=== PATIENT | male | born 1955 | race Caucasian/White ===

== ENCOUNTER → 2017-08-19 08:43 | Outpatient (POV) | payer SELFPAY | PROVIDERS: Visit Provider Dermatology | DX: Z00.00 Encounter for general adult medical examination without abnormal findings (principal) ==

== ENCOUNTER → 2019-10-30 14:51 | Outpatient (CLI) | payer BC, SELFPAY ==
[2019-10-30 15:00] LABS: Potassium 4.7 mmoL/L (3.5-5.1); Sodium 139 mmol/L (136-145)
[2019-10-30 15:02] LABS: Blood Urea Nitrogen 19 mg/dl (9-20); Estimated Glomerular Filt Rate 98 ml/min (>60); GFR (African American) 119 ML/MIN (>60)
[2019-10-30 15:03] LABS: Albumin Level 4.6 g/dl (3.5-5.0); Albumin/Globulin Ratio 1.7 (1.1-1.8); Alkaline Phosphatase 79 U/L (38-126); Bilirubin,Total 0.9 mg/dl (0.2-1.3); Carbon Dioxide 28 mmol/L (22.0-30.0); Chol/HDL Ratio 6.6 (1-3.5); Cholesterol 224 mg/dl (140-200); Globulin 2.7 g/dL (1.3-3.2); HDL Cholesterol 34 mg/dl (40-60); Total Protein,Serum 7.3 g/dl (6.3-8.2); Triglycerides 315 mg/dl (30-150); VLDL Cholesterol 63 mg/dL (0-40)
[2019-10-30 15:05] LABS: Anion Gap 13.7 mEq/L (5-15); Chloride 102 mmol/L (98-107)
[2019-10-30 15:07] LABS: Alanine Aminotransferase 23 U/L (12-78); Aspartate Amino Transferase 30 U/L (17-59)
[2019-10-30 15:08] LABS: Calcium 9.7 mg/dl (8.4-10.2); Glucose 113 mg/dl (74-100)
[2019-10-30 15:17] LABS: Direct LDL Cholesterol 125.44 mg/dL (100-129)
[2019-11-01 15:27] LABS: PSA, Free 0.23 ng/mL; Prostate Specific Ag 1.3 ng/mL (0.0-4.0)
== END ==
PROVIDERS: Visit Provider Family Medicine
DX: E78.5 Hyperlipidemia, unspecified (principal); J45.30 Mild persistent asthma, uncomplicated; B77 Ascariasis; F41.9 Anxiety disorder, unspecified; G62.9 Polyneuropathy, unspecified
CPT/HCPCS: 80053; 80061; 84153; 84154

== ENCOUNTER → 2021-03-14 08:22 | Outpatient (CLI) | payer BC, SELFPAY ==
[2021-03-14] VITALS (8 sets, daily range): BP systolic 142–163; BP diastolic 66–81; PULSE 82–87; RESP 18; TEMP 37.1; O2SAT 90–94
--- NOTE | 2021-03-14 10:09 | PC.NURSE ---
1003 pt discharge stable from Regen-[facility] infusion.
== END | disposition home or self-care (01) ==
DX: U07.1 COVID-19 (principal); Z23 Encounter for immunization
CPT/HCPCS: 96365

== ENCOUNTER → 2021-04-03 17:48 | Outpatient (CLI) | payer BC, SELFPAY ==
[2021-04-03 19:28] LABS: Anion Gap 10.8 mEq/L (5-15); Blood Urea Nitrogen 16 mg/dl (9-20); Calcium 9.8 mg/dl (8.4-10.2); Carbon Dioxide 31 mmol/L (22.0-30.0); Chloride 100 mmol/L (98-107); Estimated Glomerular Filt Rate 97 ml/min (>60); GFR (African American) 118 ML/MIN (>60); Glucose 95 mg/dl (74-100); Potassium 4.8 mmoL/L (3.5-5.1); Sodium 137 mmol/L (136-145)
== END ==
PROVIDERS: Visit Provider Family Medicine
DX: E87.8 Other disorders of electrolyte and fluid balance, not elsewhere classified (principal)
CPT/HCPCS: 80048

== ENCOUNTER 2021-04-16 17:34 | Emergency (ER) | payer BC, SELFPAY ==
[2021-04-16 17:35] VITALS: BP 158/84; PULSE 89; RESP 16; TEMP 36.9; O2SAT 95; BMI 29.7
--- NOTE | 2021-04-16 18:12 | HMH.EDGENADL ---
ED Disposition Clinical Impression: Acute hemorrhoid Disposition: Home, Self-Care Condition on Discharge: Good Referrals: Clemente Bear MD [Primary Care Provider] - Deven Harden MD [Staff Physician] - - Critical Care Critical Care Time: No Attestation: On 04/16/21, the high probability of a clinically significant, sudden or life threatening deterioration of the following system(s) required my full and direct attention, intervention and personal management. The time I documented below is in addition to time spent performing reported procedures but includes the following listed in this critical care notation. Medical Decision Making - Medical Records Medical records reviewed: Yes: I reviewed the patient's medical records. - Ish Inquiry Pt receiving controlled substance: No Medical Decision Narrative: Patient presents with normal vital signs. Physical exam demonstrates known hemorrhoids, no evidence of thrombosis. Patient is already compliant with mainstays of therapy. Obtained sitz bath from OB. Will refer to general surgery for further intervention. General Adult HPI - General Stated complaint: hemorrhoids pain Time Seen by Provider: 04/16/21 18:12 - History of Present Illness HPI narrative: Patient is a 66-year-old male presenting for evaluation of hemorrhoid pain. Patient has been symptomatic for approximately a month. Patient has been trying steroid enemas, intermittent laxatives, cold compresses without relief. Patient was seen by primary care today and referred to the ER. Patient has had challenges maintaining soft stool consistency, either with diarrhea or constipation. Patient has no shower at home to attempt sitz bath's. No recent bleeding per patient. - Related Data Home Medications Medication Instructions Recorded Confirmed latanoprost 0.005 % eye drops 1 drp OPHTHALMIC DAILY 10/30/19 04/03/21 Fluticasone/Salmeterol [Advair 1 inh INHALATION BID 03/14/21 04/03/21 250/50mcg Diskus] Gabapentin [Gabapentin 400mg Cap] 400 mg PO TID 03/14/21 04/03/21 lisinopriL [Lisinopril] 40 mg PO DAILY 03/14/21 04/03/21 Previous Rx's Medication Instructions Recorded albuterol sulfate 2.5 mg INHALATION Q6H PRN #180 ml 02/14/21 albuterol sulfate 90 mcg/actuation 2 puff INHALATION QID PRN #18 g 02/14/21 aerosol inhaler clonazepam 1 mg tablet 1 mg PO BID PRN #60 tab 02/14/21 hydrocortisone acetate 25 mg 25 mg [place] BID #24 each 04/03/21 rectal suppository sulfamethoxazole 800 1 tab PO BID #20 tab 04/07/21 mg-trimethoprim 160 mg tablet Allergies Allergy/AdvReac Type Severity Reaction Status Date / Time clindamycin Allergy Severe Swelling Verified 04/03/21 14:16 of Lip/Tongue/Throat acetaminophen Allergy Mild Verified 04/03/21 14:16 [From Tylenol-Codeine #3] amoxicillin [From Augmentin] Allergy Mild Verified 04/03/21 14:16 azithromycin Allergy Mild Verified 04/03/21 14:16 clavulanic acid Allergy Mild Verified 04/03/21 14:16 [From Augmentin] moxifloxacin [From Avelox] Allergy Mild Verified 04/03/21 14:16 Steridos AdvReac Severe Hypertensio Uncoded 04/03/21 14:16 n [facility] History - Hepatitis A Screen Drug use history?: No Attestation statement:: This patient has been screened for Hepatitis A risk factors. I have reviewed the patient's past medical history: Yes Medical History: Reports:: Anxiety, Asthma, Depression, Hypertension, Kidney Stones Other Medical History: Reports: Arthritis, Cataracts, Glaucoma Laterality Cases: Bilateral: Carpal Tunnel Release Other Surgeries: Yes: Colonoscopy, Hernia Repair, Other Amputation: No Fractures: No Comment: cataract surgery - Social History Smoking Status: Former smoker Alcohol Intake: never Substance Use Type: denies use Occupational Status: employed, retired Housing: house Household Members: spouse - Psychiatric History Pschychiatric History:: Reports:: Anxiety, Depression Family Hx:: Diabete
--- NOTE | 2021-04-16 18:23 | PC.NURSE ---
sitz bath kit given to pt and instructions for home use
[2021-04-16 18:41] VITALS: BP 158/84; PULSE 89; RESP 16; TEMP 36.9; O2SAT 95
== END 2021-04-16 18:41 | disposition home or self-care (01) ==
PROVIDERS: Emergency Provider Internal Medicine Critical Care Medicine; PCP Family Medicine
DX: K64.9 Unspecified hemorrhoids (principal); I10 Essential (primary) hypertension; F41.8 Other specified anxiety disorders; Z87.891 Personal history of nicotine dependence; Z88.1 Allergy status to other antibiotic agents
CPT/HCPCS: 99281

== ENCOUNTER → 2021-12-23 08:17 | Outpatient (CLI) | payer BC, SELFPAY ==
[2021-12-23 20:44] LABS: Adenovirus,PCR Not Detected (NotDetected); Bordetella Pertussis Not Detected (NotDetected); Chlamydophila Pneumoniae, PCR Not Detected (NotDetected); Coronavirus 19, PCR Not Detected (NotDetected); Coronavirus 229E Not Detected (NotDetected); Coronavirus NL63 Not Detected (NotDetected); Coronavirus OC43 Not Detected (NotDetected); Coronovirus HKU1,PCR Not Detected (NotDetected); Human Metapneumovirus Not Detected (NotDetected); Influenza A, PCR Not Detected (NotDetected); Influenza AH1, 2009 Not Detected (NotDetected); Influenza AH1, PCR Not Detected (NotDetected); Influenza AH3,PCR Not Detected (NotDetected); Influenza B, PCR Not Detected (NotDetected); Mycoplasma Pneumoniae, PCR Not Detected (NotDetected); Parainfluenza 1, PCR Not Detected (NotDetected); Parainfluenza 2, PCR Not Detected (NotDetected); Parainfluenza 3, PCR Not Detected (NotDetected); Parainfluenza 4, PCR Not Detected (NotDetected); Respiratory Syncytial Virus Not Detected (NotDetected); Rhinovirus/Enterovirus Not Detected (NotDetected)
== END ==
PROVIDERS: PCP Family Medicine; Visit Provider Family Medicine
DX: Z20.822 Contact with and (suspected) exposure to COVID-19 (principal); R09.89 Other specified symptoms and signs involving the circulatory and respiratory systems
CPT/HCPCS: 87581; 87632; 87798; C9803; U0003; U0005

== ENCOUNTER → 2022-10-08 23:12 | Outpatient (CLI) | payer MEDICARE, MEDICAID, SELFPAY ==
[2022-10-08 18:25] LABS: Adenovirus,PCR Not Detected (NotDetected); Bordetella Pertussis Not Detected (NotDetected); Chlamydophila Pneumoniae, PCR Not Detected (NotDetected); Coronavirus 19, PCR Not Detected (NotDetected); Coronavirus 229E Not Detected (NotDetected); Coronavirus NL63 Not Detected (NotDetected); Coronavirus OC43 Not Detected (NotDetected); Coronovirus HKU1,PCR Not Detected (NotDetected); Human Metapneumovirus Not Detected (NotDetected); Influenza A, PCR Not Detected (NotDetected); Influenza AH1, 2009 Not Detected (NotDetected); Influenza AH1, PCR Not Detected (NotDetected); Influenza AH3,PCR Not Detected (NotDetected); Influenza B, PCR Not Detected (NotDetected); Mycoplasma Pneumoniae, PCR Not Detected (NotDetected); Parainfluenza 1, PCR Not Detected (NotDetected); Parainfluenza 2, PCR Not Detected (NotDetected); Parainfluenza 3, PCR Not Detected (NotDetected); Parainfluenza 4, PCR Not Detected (NotDetected); Respiratory Syncytial Virus Not Detected (NotDetected); Rhinovirus/Enterovirus Not Detected (NotDetected)
[2022-10-08 18:51] LABS: Basophils % 0.5 % (0.1-2.0); Eosinophils # 0.1 K/mm3 (0.0-0.4); Eosinophils % 2.2 % (0.1-12.0); Hematocrit 44.6 % (42.0-52.0); Hemoglobin 14.5 g/dL (14.1-18.0); Lymphocytes # 2.1 K/mm3 (0.7-4.5); Lymphocytes % 38.6 % (10-50); Mean Corpuscular HGB Conc 32.6 g/dL (31.8-35.4); Mean Corpuscular Hemoglobin 30.9 pg (27.0-31.2); Mean Corpuscular Volume 94.9 fl (80-94); Mean Platelet Volume 9.9 fl (7.4-10.4); Monocytes # 0.4 K/mm3 (0.1-1.0); Neutrophils # 2.8 K/mm3 (1.8-7.8); Neutrophils % 51.7 % (37.0-80.0); Platelet Count 252 K/mm3 (142-424); Red Cell Distribution Width 13.5 % (11.5-17.5); White Blood Count 5.5 K/mm3 (4.8-10.8)
[2022-10-08 18:55] LABS: Alanine Aminotransferase 60 U/L (12-78); Albumin Level 4.3 g/dl (3.5-5.0); Albumin/Globulin Ratio 1.7 (1.1-1.8); Alkaline Phosphatase 79 U/L (38-126); Anion Gap 16.3 mEq/L (5-15); Aspartate Amino Transferase 61 U/L (17-59); Bilirubin,Total 0.5 mg/dl (0.2-1.3); Blood Urea Nitrogen 17 mg/dl (9-20); Calcium 9.4 mg/dl (8.4-10.2); Carbon Dioxide 26 mmol/L (22.0-30.0); Chloride 101 mmol/L (98-107); Chol/HDL Ratio 8.9 (1-3.5); Cholesterol 257 mg/dl (140-200); Estimated Glomerular Filt Rate 97 ml/min (>60); GFR (African American) 117 ML/MIN (>60); Globulin 2.6 g/dL (1.3-3.2); Glucose 184 mg/dl (74-100); HDL Cholesterol 29 mg/dl (40-60); Potassium 4.3 mmoL/L (3.5-5.1); Sodium 139 mmol/L (136-145); Total Protein,Serum 6.9 g/dl (6.3-8.2); Triglycerides 470 mg/dl (30-150)
[2022-10-08 19:07] LABS: Direct LDL Cholesterol 122.85 mg/dL (100-129)
[2022-10-08 19:21] LABS: Hemoglobin A1C 5.9 % (4.0-6.0)
[2022-10-08 19:27] LABS: Prostate Specific Ag Screen 1.1 ng/ml (0.0-4.0)
== END ==
PROVIDERS: PCP Family Medicine; Visit Provider Family Medicine
DX: R07.9 Chest pain, unspecified (principal); G62.9 Polyneuropathy, unspecified; I10 Essential (primary) hypertension; J02.9 Acute pharyngitis, unspecified; Z12.5 Encounter for screening for malignant neoplasm of prostate; Z79.899 Other long term (current) drug therapy; R06.09 Other forms of dyspnea
CPT/HCPCS: 80053; 80061; 83036; 84443; 85025; 87581; 87632; 87635; 87798; G0103; C9803; U0003; U0005

== ENCOUNTER → 2022-11-11 08:11 | Outpatient (CLI) | payer MEDICARE, SELFPAY ==
[2022-11-11 09:07] LABS: Anion Gap 11.5 mEq/L (5-15); Blood Urea Nitrogen 25 mg/dl (9-20); Calcium 10.2 mg/dl (8.4-10.2); Carbon Dioxide 30 mmol/L (22.0-30.0); Chloride 102 mmol/L (98-107); Estimated Glomerular Filt Rate 75 ml/min (>60); GFR (African American) 91 ML/MIN (>60); Glucose 129 mg/dl (74-100); Potassium 4.5 mmoL/L (3.5-5.1); Sodium 139 mmol/L (136-145)
== END ==
PROVIDERS: PCP Family Medicine; Visit Provider Physician Assistant
DX: I10 Essential (primary) hypertension (principal)
CPT/HCPCS: 36415; 80048

== ENCOUNTER → 2022-11-18 07:53 | Outpatient (CLI) | payer MEDICARE, SELFPAY ==
--- NOTE | 2022-11-18 | CA_ITS ---
APPROVED REPORT Exam: Exercise Treadmill Technologist: Ankita Thurston, Ht: 5 ft 8 in Wt: 222 lbs BSA: 2.14 m2 HR: 67 bpm BP: 163/86 mmHg Rhythm: NSR, ST-T ABNS IN LEADS III, AVF Medical History Medical History: Hyperlipidemia, Smoking Medications: Gabapentin,,,,, ClonAZEPAM,,,,, Albuterol,,,,, Celecoxib,,,,, CetIRIZINE,,,,, Vit D2,,,,, ADVAIR Diskus,,,,, Valsartan-HYDROCLOROTHIAZIDE,,,,, Cardiac Risk Factors: Hyperlipidemia, Smoking Stress Test Details Test: Brien HR Resting HR: 73 bpm Max Heart Rate (APMHR): 155 bpm Max HR Achieved: 157 bpm Target HR (85% APMHR): 132 bpm % of APMHR: 101 Recovery HR: 95 bpm HR response to stress: Normal HR response to stress BP Resting BP: 163.0/86 mmHg Max BP: 240/80 mmHg Recovery BP: 170.0/74.0 mmHg BP response to stress: Abnormal hypertensive response to stress. ECG Resting ECG: NSR, ST-T ABNS IN LEADS III, AVF Stress ECG: > [address] DEPRESSION Arrhythmia: PVCs, VENTRICULAR COUPLET Recovery ECG: RETURN TO BASELINE WITHIN 3 MINUTES OF RECOVERY Recovery Arrhythmia: PVCs Clinical Exercise duration: 09:30 min Highest Stage Achieved: Exercise capacity: 10.1 METs Overall Exercise Capacity for Age: Average Stress ECG Conclusion PT EXERCISED 9:30 ON BRIEN PROTOCOL. HE ACHIEVED A TOTAL OF 10.1 METS. HE HAS AN AVERAGE EXERCISE CAPACITY COMPARED TO AGE AND SEX MATCHED PEERS. HE HAS A NORMAL HR, BUT EXAGGERATED BP, RESPONSE TO EXERCISE. MAX HR: 157 % OF PM: 101% MAX BP: 240/80 METS: 10.1 TEST STOPPED DUE TO: SOA, FATIGUE NO CP OCCASTIONAL ISOLATED PVC AND SEVERAL VENTRICULAR COUPLETS > [address] DEPRESSION WAS PRESENT AT PEAK STRESS. MILD EXAGGERATION OF BASELINE ABNS IN LEADS III AND AVF CONCLUSION AVERAGE EXERCISE CAPACITY EXAGGERATED BP RESPONSE TO EXERCISE STRESS ECG IS POSITIVE FOR ISCHEMIA MYOVIEW IMAGES REPORTED SEPARATELY Test Summary REST . . . . . . . Standing REST . . . . . . . Sitting REST 06:08 0.0 0.0 73 . 163/ 86 . . Stage 1 01:00 10.0 1.7 94 . . . . Stage 1 02:00 10.0 1.7 102 . . . . Stage 1 03:00 10.0 1.7 103 . 194/ 82 . . Stage 2 01:00 12.0 2.5 114 . . . . Stage 2 02:00 12.0 2.5 116 . . . . Stage 2 03:00 12.0 2.5 124 . 220/ 78 . . Stage 3 01:00 14.0 3.4 133 . . . . Stage 3 02:00 14.0 3.4 137 . . . . Stage 3 03:00 14.0 3.4 143 . 240/ 80 . . Stage 4 00:30 16.0 4.2 153 . . . Stop exercise at 09:30 RECOVERY 01:00 0.0 0.0 136 . . . . RECOVERY 02:00 0.0 0.0 115 . . . . RECOVERY 03:00 0.0 0.0 104 . 184/ 75 . . RECOVERY 04:00 0.0 0.0 97 . 196/ 76 . . RECOVERY 05:00 0.0 0.0 93 . 170/ 74 . . RECOVERY 06:00 0.0 0.0 93 . 152/ 74 . . RECOVERY 06:23 0.0 0.0 94 . 152/ 74 . . Electronically signed by : Prabha Beckwith, 11/21/2022 14:42:33
--- NOTE | 2022-11-18 07:53 | NM_ITS ---
APPROVED REPORT Exam: Nuclear Stress Test Indication: chest pain Patient Location: Outpatient Stress Tech: Ankita Thurston OR Tech:Miriam Florentino BRANDON RT(R)(N) Ht: 5 ft 8 in Wt: 215 lbs HR: 73 bpm BP: 163/86 mmHg BSA: 2.11 m2 Rhythm: NSR TID: 0.95 BMI: 32.6 History: chest pain Procedure: Patient exercised on Micah protocol 9:30 minutes and sec, resting heart rate 73 bpm, resting blood pressure 163/86 mmHg, with exercise maximum heart rate achived was 157 bpm which is 101 % of the maximum predicted heart rate and blood pressure was 240/80 mmHg. Patient denied any complaint of chest pain. Patient has average exercise capacity, achieved 10.1 METs of workload on treadmill, the blood pressure response to exercise was exaggerated. Cardiac Stress and Resting SPECT Images: Cardiac Stress and Resting SPECT images were obtained using technetium 99m Myoview 32.4 mCi stress and 10.62 mCi at rest. Resting and stress imaging in supine position demonstrate a medium-sized, mild, partially reversible perfusion defect in the inferior LV wall. This is no longer visualized with prone stress imaging. Findings are suggestive of diaphragmatic attenuation. Gated imaging demonstrates normal global and regional LV systolic function. LVEF is calculated at 54%. Conclusion: Resting and stress imaging in supine position demonstrate a medium-sized, mild, partially reversible perfusion defect in the inferior LV wall. This is no longer visualized with prone stress imaging. Findings are suggestive of diaphragmatic attenuation. No definite evidence of reversible ischemia. Gated imaging demonstrates normal global and regional LV systolic function. LVEF is calculated at 54%. Electronically signed by : Prabha Beckwith, 11/21/2022 14:50:21
--- NOTE | 2022-11-18 08:58 | CA_ITS ---
APPROVED REPORT EXAM: Comprehensive 2D, Doppler, and color-flow Echocardiogram Mining Analyst: RUMA Ferrari, RVS Ht: 5 ft 8 in Wt: 222lbs BSA: 2.14 HR: 94 bpm BP: 181/90 mmHg Indications: abn Ekg, HTN, CP, HLD, Ex-smoker, SOB Echo Enhancing Agent Comments: Poor acoustic windows. 2D Dimensions IVSd 1.09 cm M: 0.6-1.2 LVEF (Visual) 58.70 % PWd 0.91 cm M: 0.6 - 1.2 LA Volume 62.50 mL LVDd 4.26 cm M: 4.2 - 5.9 LA Volume Index 29.21 mL/m2 (M/F) 16-34 LVDs 2.95 cm M: 2.5 - 4.0 Aortic Root 3.28 cm M: 3.1 - 3.7 Left Atrium 3.28 cm M: 3.0 - 4.0 LVOT 2.04 cm (M/F) 1.5-2.5 M-Mode Dimensions LA Diam 3.70 cm (1.9-4.0) Ao Diam 3.20 cm (2.0-3.7) EPSs 0.23 cm TAPSE 1.45 (<1.7) LV Diastology E Decel Time 157.00 (160-240 msec) E/A Ratio 0.65 MED E' 4.70 (< 7 cm/sec) MED A' 9.10 cm/s E'/MED E' Ratio 11.94 (>14) LAT E' 8.60 (<10 cm/sec) LAT A' 12.90 cm/s E/LAT E' Ratio 6.52 (>14) Aortic Valve LVOT Max 111.00 (70-110 cm/s) LVOT VTI 18.81 cm AoV Peak Hank. 128.00 (50-130 cm/s) AO Peak GR. 6.50 mmHg AO Mean GR. 3.30 (<5 mmHg) AO VTI 20.08 (18-25 cm) ASHWIN (VTI) 3.06 (2.5-4.5 cm2) Mitral Valve MV A Velocity 86.00 (40-130 cm/s) E/A Ratio 0.65 MV Decel. Time 157.00 (160-240 ms) Pulmonary Valve PV Peak Velocity 112.00 (50-150 cm/s) Left Ventricle The left ventricle is normal size. The left ventricular systolic function is normal. The left ventricular ejection fraction is within the normal range. There is increased LV wall thickness. There is normal LV segmental wall motion. The left ventricular diastolic function is normal. LVEF is 60%. Right Ventricle The right ventricle is normal size. The right ventricular systolic function is normal. Atria The left atrium size is normal. The right atrium size is normal. There is no Doppler evidence of interatrial shunt. Aortic Valve The aortic valve is trileaflet. The aortic valve is mildly thickened. There is no aortic valvular stenosis. No aortic regurgitation is present. Mitral Valve The mitral valve is normal in structure. Trace mitral regurgitation. Tricuspid Valve The tricuspid valve leaflets are thin and pliable. Trace tricuspid regurgitation. Pulmonic Valve The pulmonary valve is normal in structure. Trace pulmonic regurgitation. Great Vessels The aortic root is normal in size. The ascending aorta is normal in size. IVC is normal in size and collapses >50% with inspiration. Pericardium There is no pericardial effusion. Other Information Study Quality: Adequate Conclusion Normal biventricular systolic function. No signifcant valvular disease. Electronically signed by : Prabha Beckwith, 11/18/2022 18:58:05
== END ==
LOC: RAD 07:53
PROVIDERS: PCP Family Medicine; Visit Provider Physician Assistant
DX: E78.5 Hyperlipidemia, unspecified (principal); R06.00 Dyspnea, unspecified; R07.9 Chest pain, unspecified; R94.31 Abnormal electrocardiogram [ECG] [EKG]; Z78.9 Other specified health status; Z87.891 Personal history of nicotine dependence
CPT/HCPCS: 78452; 93017; 93306; A9502

== ENCOUNTER → 2023-03-01 13:07 | Outpatient (CLI) | payer MEDICARE, SELFPAY ==
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
== END ==
PROVIDERS: PCP Nurse Practitioner; Visit Provider Nurse Practitioner
DX: J18.9 Pneumonia, unspecified organism (principal)
CPT/HCPCS: 71046

== ENCOUNTER 2023-06-07 18:12 | Emergency (ER) | payer OTHER, MEDICARE, SELFPAY ==
--- NOTE | 2023-06-07 18:09 | PC.NURSE ---
TRAUMA ALERT CANCELLED AT THIS TIME PER DR NEWTON
--- NOTE | 2023-06-07 18:09 | PC.NURSE ---
FAST EXAM PER DR NEWTON AT THIS TIME
[2023-06-07 18:13] VITALS: BP 180/92; PULSE 78; RESP 18; TEMP 36.6; O2SAT 94
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
--- NOTE | 2023-06-07 18:39 | PC.NURSE ---
Rounded on pt. No needs or complaints voiced. Call light within reach.
[2023-06-07 18:41] LABS: Alanine Aminotransferase 48 U/L (12-78); Albumin Level 4.6 g/dl (3.5-5.0); Albumin/Globulin Ratio 1.6 (1.1-1.8); Alkaline Phosphatase 72 U/L (38-126); Anion Gap 9.1 mEq/L (5-15); Aspartate Amino Transferase 53 U/L (17-59); Bilirubin,Total 0.7 mg/dl (0.2-1.3); Blood Urea Nitrogen 18 mg/dl (9-20); Calcium 10.1 mg/dl (8.4-10.2); Carbon Dioxide 33 mmol/L (22.0-30.0); Chloride 103 mmol/L (98-107); Estimated Glomerular Filt Rate 75 ml/min (>60); GFR (African American) 90 ML/MIN (>60); Globulin 2.9 g/dL (1.3-3.2); Glucose 100 mg/dl (74-100); Potassium 4.1 mmoL/L (3.5-5.1); Sodium 141 mmol/L (136-145); Total Protein,Serum 7.5 g/dl (6.3-8.2)
[2023-06-07 18:43] LABS: Activated Partial Thrombo Time 23.5 seconds (22.8-30.6); INR 1.01 (0.9-1.1); Prothrombin Time 10.9 seconds (10.1-12.5)
[2023-06-07 18:49] LABS: Basophils % 0.5 % (0.1-2.0); Eosinophils # 0.4 K/mm3 (0.0-0.4); Eosinophils % 4.5 % (0.1-12.0); Hematocrit 42.9 % (42.0-52.0); Hemoglobin 15.1 g/dL (14.1-18.0); Lymphocytes # 3.5 K/mm3 (0.7-4.5); Mean Corpuscular HGB Conc 35.2 g/dL (31.8-35.4); Mean Corpuscular Hemoglobin 32.9 pg (27.0-31.2); Mean Corpuscular Volume 93.6 fl (80-94); Mean Platelet Volume 8.2 fl (7.4-10.4); Monocytes # 0.6 K/mm3 (0.1-1.0); Platelet Count 254 K/mm3 (142-424); Red Blood Count 4.59 M/mm3 (4.60-6.20); Red Cell Distribution Width 13.4 % (11.5-17.5); White Blood Count 8.6 K/mm3 (4.8-10.8)
[2023-06-07 18:55] VITALS: BMI 33.4
[2023-06-07 19:00] VITALS: BP 130/70; PULSE 74; O2SAT 95
[2023-06-07 19:08] LABS: Lipase 153 U/L (23-300)
[2023-06-07] MEDS: SODIUM CHLORIDE 0.9% 10ML SYR (RAD ONLY) 10 ML IV (19:36)
[2023-06-07] MEDS: 0.9 % SODIUM CHLORIDE 50 ML VIAL 100 ML IV (19:36)
[2023-06-07] MEDS: IOPAMIDOL-370 (76%);100ML BOTTLE 200 ML IV (19:36)
[2023-06-07 20:30] VITALS: BP 142/75; PULSE 70; O2SAT 95
[2023-06-07] MEDS: ACETAMINOPHEN 500MG TAB 1000 MG PO (20:49)
[2023-06-07 21:00] VITALS: BP 130/72; PULSE 67; O2SAT 94
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
[2023-06-07 21:24] VITALS: BP 130/72; PULSE 63; RESP 19; TEMP 36.6; O2SAT 94
== END 2023-06-07 21:26 | disposition home or self-care (01) ==
PROVIDERS: Emergency Provider Emergency Medicine; PCP Family Medicine
DX: S20.214A Contusion of middle front wall of thorax, initial encounter (principal); M25.551 Pain in right hip; M79.602 Pain in left arm; J45.909 Unspecified asthma, uncomplicated; G62.9 Polyneuropathy, unspecified; V49.50XA Passenger injured in collision with unspecified motor vehicles in traffic accident, initial encounter
CPT/HCPCS: 70450; 70498; 71275; 72125; 72128; 72131; 73502; 73552; 74174; 80053; 83690; 85025; 85610; 85730; 99285; Q9967

== ENCOUNTER 2023-07-26 09:00 | Outpatient (RCR) | payer OTHER, MEDICARE, SELFPAY ==
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
== END 2023-07-26 10:00 | disposition home or self-care (01) ==
LOC: PT 09:00
PROVIDERS: Visit Provider Family Medicine
DX: M54.2 Cervicalgia (principal); M54.50 Low back pain, unspecified; M25.551 Pain in right hip; V89.2XXA Person injured in unspecified motor-vehicle accident, traffic, initial encounter
CPT/HCPCS: 97010; 97014; 97110; 97140; 97163; 97530; G0283

== ENCOUNTER 2023-12-01 09:29 | Outpatient (CLI) | payer MEDICARE, SELFPAY ==
[2023-12-01 09:49] LABS: Basophils # 0.1 K/mm3 (0-0.2); Basophils % 1.3 % (0.1-2.0); Eosinophils # 0.2 K/mm3 (0.0-0.4); Eosinophils % 3.8 % (0.1-12.0); Hematocrit 43.4 % (42.0-52.0); Lymphocytes # 2.5 K/mm3 (0.7-4.5); Lymphocytes % 40.4 % (10-50); Mean Corpuscular HGB Conc 32.4 g/dL (31.8-35.4); Mean Corpuscular Hemoglobin 31.2 pg (27.0-31.2); Mean Corpuscular Volume 96.6 fl (80-94); Mean Platelet Volume 8.1 fl (7.4-10.4); Monocytes # 0.4 K/mm3 (0.1-1.0); Monocytes % 5.9 % (1.7-9.3); Neutrophils % 48.6 % (37.0-80.0); Platelet Count 225 K/mm3 (142-424); Red Blood Count 4.49 M/mm3 (4.60-6.20); Red Cell Distribution Width 14.1 % (11.5-17.5); White Blood Count 6.2 K/mm3 (4.8-10.8)
[2023-12-01 10:10] LABS: Alanine Aminotransferase 41 U/L (12-78); Albumin Level 4.2 g/dl (3.5-5.0); Alkaline Phosphatase 68 U/L (38-126); Anion Gap 11.3 mEq/L (5-15); Aspartate Amino Transferase 42 U/L (17-59); Bilirubin,Indirect 0.7 mg/dL (0.0-0.9); Bilirubin,Total 0.7 mg/dl (0.2-1.3); Bilirubin,Unconjugated 0.8 mg/dL (0.0-1.1); Blood Urea Nitrogen 28 mg/dl (9-20); Calcium 9.8 mg/dl (8.4-10.2); Carbon Dioxide 30 mmol/L (22.0-30.0); Chloride 105 mmol/L (98-107); Chol/HDL Ratio 7.7 (1-3.5); Cholesterol 224 mg/dl (140-200); Estimated Glomerular Filt Rate 67 ml/min (>60); GFR (African American) 81 ML/MIN (>60); Glucose 127 mg/dl (74-100); HDL Cholesterol 29 mg/dl (40-60); Magnesium 1.7 mg/dl (1.6-2.3); Potassium 4.3 mmoL/L (3.5-5.1); Sodium 142 mmol/L (136-145); Total Protein,Serum 7.2 g/dl (6.3-8.2)
[2023-12-01 10:21] LABS: Direct LDL Cholesterol 108.42 mg/dL (100-129)
[2023-12-01 10:25] LABS: Free T4 (Free Thyroxine) 0.82 ng/dl (0.78-2.19)
[2023-12-01 10:34] LABS: Triglycerides 420 mg/dl (30-150)
[2023-12-01 10:40] LABS: Thyroid Stimulating Hormone 2.36 uIU/mL (0.465-4.68)
== END 2023-12-01 23:59 | disposition home or self-care (01) ==
LOC: LAB 09:30
PROVIDERS: PCP Family Medicine; Visit Provider Nurse Practitioner
DX: Z78.9 Other specified health status (principal); R94.31 Abnormal electrocardiogram [ECG] [EKG]; E78.5 Hyperlipidemia, unspecified; Z87.891 Personal history of nicotine dependence; I67.1 Cerebral aneurysm, nonruptured; I10 Essential (primary) hypertension
CPT/HCPCS: 36415; 80048; 80061; 80076; 83735; 84439; 84443; 85025

== ENCOUNTER 2024-04-26 12:20 | Outpatient (CLI) | payer MEDICARE, SELFPAY ==
[2024-04-26 19:21] LABS: Prostate Specific Ag Screen 1.4 ng/ml (0.0-4.0)
== END 2024-04-26 23:59 | disposition home or self-care (01) ==
LOC: LAB.DROPOF 04-27 12:15
PROVIDERS: PCP Family Medicine; Visit Provider Family Medicine
DX: Z12.5 Encounter for screening for malignant neoplasm of prostate (principal)
CPT/HCPCS: G0103

== ENCOUNTER 2025-02-19 07:46 | Outpatient (CLI) | payer MEDICARE, SELFPAY ==
[2025-02-19 15:22] LABS: Hematocrit 44.3 % (42.0-52.0); Hemoglobin 15.0 g/dL (14.1-18.0); Immature Granulocytes % 0.3 %; Mean Corpuscular HGB Conc 33.9 g/dL (31.8-35.4); Mean Corpuscular Hemoglobin 31.9 pg (27.0-31.2); Mean Corpuscular Volume 94.3 fl (80-94); Nucleated Red Blood Cells % 0 %; Platelet Count 231 K/mm3 (142-424); Red Blood Count 4.70 M/mm3 (4.60-6.20); Red Cell Distribution Width-SD 42.8 fL; White Blood Count 7.5 K/mm3 (4.8-10.8)
[2025-02-19 17:00] LABS: Alanine Aminotransferase 56 U/L (12-78); Albumin Level 4.7 g/dl (3.5-5.0); Albumin/Globulin Ratio 1.5 (1.1-1.8); Alkaline Phosphatase 82 U/L (38-126); Anion Gap 10.4 mEq/L (5-15); Aspartate Amino Transferase 47 U/L (17-59); Bilirubin,Total 0.8 mg/dl (0.2-1.3); Blood Urea Nitrogen 18 mg/dl (9-20); Calcium 10.1 mg/dl (8.4-10.2); Carbon Dioxide 31 mmol/L (22.0-30.0); Chloride 98 mmol/L (98-107); Cholesterol 243 mg/dl (140-200); Creatinine,Serum 1.00 mg/dl (0.66-1.25); Estimated Glomerular Filt Rate 74 ml/min (>60); GFR (African American) 90 ML/MIN (>60); Globulin 3.2 g/dL (1.3-3.2); Glucose 122 mg/dl (74-100); HDL Cholesterol 33 mg/dl (40-60); Potassium 4.4 mmoL/L (3.5-5.1); Sodium 135 mmol/L (136-145); Total Protein,Serum 7.9 g/dl (6.3-8.2); Triglycerides 324 mg/dl (30-150)
[2025-02-19 18:46] LABS: Hepatitis C Ab Qual. W/ RFX NEGATIVE (Negative)
[2025-02-20 08:12] LABS: Hepatitis B Surface Antigen Negative (Negative)
--- OUTSIDE RECORDS SUMMARY | 2025-02-21 07:50 | XMS_ITS | Continuity of Care Document ---
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 Name Role Phone Clemente Bear MD Primary Care Provider [phone] Encounters Date Type Department Care Team Description 04/06/2024 10:35 AM EST Ancillary Procedure [facility] [address] [place] [address] Leonora Matthews PA-C Left ankle pain, unspecified chronicity 04/06/2024 10:15 AM EST Office Visit [facility] [facility] [address] [address] Leonora Matthews PA-C Sprain of left ankle, unspecified ligament, initial encounter (Primary Dx); Left ankle pain, unspecified chronicity 03/02/2024 8:15 AM EST Office Visit [facility] [address] [facility] [employer] [address] [place] [id number] Ann Stafford PT Impingement syndrome of shoulder region, unspecified laterality (Primary Dx) 02/24/2024 8:15 AM EST Office Visit [facility] [facility] [address] [place] [id number] Ann Stafford, PT Impingement syndrome of shoulder region, unspecified laterality (Primary Dx); Impingement syndrome of right shoulder 02/18/2024 Plan of Care Documentation [facility] [address] [facility], [place] [id number] 02/18/2024 8:00 AM EDT Office Visit [facility] [address] [place] [id number] Ann Stafford, PT Impingement syndrome of shoulder region, unspecified laterality (Primary Dx); Impingement syndrome of right shoulder 01/21/2024 2:55 PM EDT Ancillary Procedure [facility] [address] [place] [id number] Thomas Yanes MD Acute pain of both shoulders 01/21/2024 2:30 PM EDT Office Visit [facility] [address] [address] Thomas Yanes MD Acute pain of both shoulders (Primary Dx); Impingement syndrome of shoulder region, unspecified laterality 01/28/2022 [facility]phone [facility] [address] [place], [place] [id number] Thomas Yanes MD Other (Brace ) 10/29/2021 8:45 AM EDT Office Visit [facility] [address] [address] Thomas Yanes MD Acute medial meniscus tear of right knee, initial encounter (Primary Dx) 10/14/2021 8:00 AM EDT Ancillary Procedure [facility] [address] [place] [address] Acute pain of right knee 09/26/2021 1:45 PM EDT Ancillary Procedure [facility] [address] [place] [id number] Thomas Yanes MD Acute pain of right knee 09/26/2021 1:30 PM EDT Office Visit [facility] [address] [place] [address] Thomas Yanes MD Acute pain of right knee (Primary Dx) 12/01/2013 7:41 AM EDT - 12/01/2013 11:59 PM EDT Hospital Encounter EDG [facility] [place] [address] Clemente Bear MD Edema; Fluid and electrolyte imbalance in ; Other fluid overload Discharge Disposition: Home or Self Care 12/11/2012 5:50 PM EDT - 12/11/2012 7:[address] [facility] [place] [address] Lucy Rothman MD Knee laceration (Primary Dx) Discharge Disposition: Home or Self Care 03/31/2009 11:07 AM EST - 03/31/2009 12:04 PM EST Emergency [facility] EPIC CON UNK [facility] Jasvir Griffiths MD 08/19/2008 1:30 PM EDT - 08/19/2008 2:31 PM EDT Emergency HST E/D BLUE EDG Alexa Velasquez DO 08/12/2007 12:01 AM EDT - 08/12/2007 11:59 PM EDT Hospital Encounter [facility]ST EMG EDG Murphy Mahan MD 06/30/2007 10:45 AM EDT - 06/30/2007 1:25 PM EDT Hospital Encounter [facility]ST OSC Murphy Mahan MD 06/24/2007 12:01 AM EST - 06/24/2007 11:59 PM EST Hospital Encounter [facility] EMG EDG Murphy Mahan MD 05/13/2006 Hospital Encounter [facility] MEDICINE FTT Generic, Historical Provider 04/26/2001 11:18 AM EST - 04/26/2001 11:59 PM EST Hospital Encounter [facility] RADIOLOGY EDG Juwan Rowland 02/25/2001 5:33 PM EST - 02/25/2001 7:30 PM EST Emergency [facility] MAJOR ER EDG Phil Johnson DO 12/23/2000 10:10 AM EDT - 12/23/2000 11:59 PM EDT Hospital Encounter [facility] LAB EDG Gerhard Amato MD Allergies Active Allergy Reactions Criticality Noted Date Comments Corticosteroids (Glucocorticoids) 12/11/2012 Moxifloxacin 12/11/2012 Androgenic Anabolic Steroid Rash 09/26/2021 Codeine Anxiety 09/26/2021 has day terrors Clindamycin Nausea Only 09/26/2021 Amoxicillin-Pot Clavulanate Nausea Only 09/26/2021 Cefdinir Other (See Comments) 04/06/2024 causes blisters in mouth Doxycycline Hyclate Nausea Only 04/06/2024 Medications celecoxib (CELEBREX) 100 mg capsule Take by mouth 2 times daily. Active LORazepam (ATIVAN) 0.5 mg tablet Take 0.5 mg by mouth every 6 hours as needed. Active gabapentin (NEURONTIN) 400 mg Oral Capsule Take by mouth 3 times daily. Active clonazePAM (KLONOPIN) 1 mg Oral Tablet Take by mouth 3 times daily. Active valsartan-hydroc hlorothiazide (DIOVAN-HCT) 160-12.5 mg Oral Tablet Take 1 Tablet by mouth daily. Active albuterol (PROVENTIL) 2.5 mg /3 mL (0.083 %) Inhl Solution for Nebulization Take 2.5 mg by nebulization every 4 hours as needed for Wheezing. Active antiox #8/om3/dha/epa/l ut/zeax (PRESERVISION AREDS 2, OMEGA-3, ORAL) Take by mouth. Active Active Problems Problem Noted Date Diagnosed Date Impingement syndrome of shoulder 02/09/2024 Impingement syndrome of shoulder 02/09/2024 Immunizations Immunization Administration Dates Next Due Tdap 12/11/2012 Social History Smoking Status as of 02/21/2025 Tobacco Use Types Packs/Day Years Used Date Smoking Tobacco: Never Assessed Sex and Gender Information Value Date Recorded Sex Assigned at Not on file Legal Sex Male 2:28 PM EDT Gender Identity Not on file Sexual Orientation Not on file Last Filed Vital Signs Vital Sign Reading Time Taken Comments Blood Pressure 164/81 12/11/2012 5:19 PM EDT Pulse 96 12/11/2012 5:19 PM EDT Temperature 36.9 C (98.5 F) 12/11/2012 5:19 PM EDT Respiratory Rate 20 12/11/2012 5:19 PM EDT Oxygen Saturation 99% 12/11/2012 5:19 PM EDT Inhaled Oxygen Concentration - - Weight 90.7 kg (200 lb) 12/11/2012 5:19 PM EDT Height 172.7 cm (5' 8 ) 12/11/2012 5:19 PM EDT Body Mass Index 30.41 12/11/2012 5:19 PM EDT Plan of Treatment Not on file Procedures Procedure Name Priority Date/Time Associated Diagnosis Comments XR ANKLE LEFT AP LATERAL AND OBLIQUE INCLUDING STANDING Routine 04/06/2024 10:53 AM EST Left ankle pain, unspecified chronicity XR SHOULDER BILATERAL 3 VIEWS Routine 01/21/2024 3:05 PM EDT Acute pain of both shoulders MRI KNEE RIGHT WO CONTRAST Routine 10/14/2021 8:37 AM EDT Acute pain of right knee XR KNEE RIGHT AP LATERAL AND SUNRISE STANDING Routine 09/26/2021 2:23 PM EDT Acute pain of right knee EC ECHOCARDIOGRAM COMPLETE W DOPPLER AND COLOR FLOW MAPPING Routine 12/01/2013 8:14 AM EDT Edema Fluid and electrolyte imbalance in Other fluid overload SCANNED OR REPORT 11/27/2009 12: 00 AM EDT Results * XR ANKLE LEFT AP LATERAL AND OBLIQUE INCLUDING STANDING (04/06/2024 10:53 AM EST) Narrative Genericuser, Audit - 04/06/2024 10:53 AM EST Please see physician's note from office encounter for x-ray imaging result Leonora Matthews PA-C [facility] DIAGNOSTIC IMAGING O RDERABLES Final Result * XR SHOULDER BILATERAL 3 VIEWS (01/21/2024 3:05 PM EDT) Narrative Ofer, Audit - 01/21/2024 3:05 PM EDT Please see physician's note from office encounter for x-ray imaging result us Thomas Yanes MD [facility] DIAGNOSTIC IMAGING ORDERABL ES Final Result * MRI KNEE RIGHT WO CONTRAST (10/14/2021 8:37 AM EDT) Narrative [facility] - 10/14/2021 8:37 AM EDT Please see the scanned MRI report associated with this order on the Imaging tab of the patient's chart. Procedure Note Niharika Arcos, Clerical Staff - 10/14/2021 Please see the scanned MRI report associated with this order on theImaging tab of the patient's chart. us Thomas KRAUS MRI ORDERABLES Final Result [facility] * XR KNEE RIGHT AP LATERAL AND SUNRISE STANDING (09/26/2021 2:23 PM EDT) Narrative Monika Fuentes - 09/26/2021 2:23 PM EDT Please see physician's note from office encounter for x-ray imaging result us Thomas KRAUS DIAGNOSTIC IMAGING ORDERABL ES Final Result * EC ECHOCARDIOGRAM COMPLETE W DOPPLER AND COLOR FLOW MAPPING (12/01/2013 8:14 AM EDT) Ejection Fraction 55-60 % PYRAMIS Anatomical Region Laterality Modality Electrocardiogra phy 12/01/2013 7:47 AM EDT Impressions 12/01/2013 11:03 AM EDT FINDINGS Estimated Left Ventricular Ejection Fraction =55-60% Left Ventricle Normal global left ventricular size, wall thickness, systolic function with no obvious regional wall motion abnormalities. Left ventricular ejection fraction is in the normal range. pseudonormal filling pattern of the left ventricle. Right Ventricle Normal right ventricular size and function. TAPSE 2.2 cm. Right Atrium Normal right atrial size. Left Atrium Normal left atrial size. Left atrial volume index is estimated to be 19 ml/m2. Mitral Valve Structurally normal mitral valve. No mitral stenosis or prolapse. Trivial mitral regurgitation. Aortic Valve Trileaflet aortic valve. Focal thickening of the aortic valve cusps. No aortic valve stenosis or regurgitation. Tricuspid Valve Structurally normal tricuspid valve. No tricuspid stenosis, regurgitation or prolapse. Pulmonic Valve Structurally normal pulmonic valve. No pulmonic stenosis. Mild pulmonic regurgitation. Pericardium Normal pericardium. No pericardial or pleural effusion. Aorta Normal size aortic root and proximal ascending aorta. Aortic arch appears within normal limits. CONCLUSIONS Normal global left ventricular size, wall thickness, systolic function with no obvious regional wall motion abnormalities. Left ventricular ejection fraction is in the normal range. pseudonormal filling pattern of the left ventricle. Normal right ventricular size and function. Morphologically Normal valves with no hemodynamically significant valve ds. Narrative Procedure Note Triston Muñoz MD - 12/01/2013 IMPRESSION FINDINGS Estimated Left Ventricular Ejection Fraction =55-60% Left Ventricle Normal global left ventricular size, wall thickness,systolic function with no obvious regional wall motion abnormalities. Left ventricular ejection fraction isin the normal range. pseudonormal filling pattern of the left ventricle. Right Ventricle Normal right ventricular size and function. TAPSE 2.2cm. Right Atrium Normal right atrial size. Left Atrium Normal left atrial size. Left atrial volume index isestimated to be 19 ml/m2. Mitral Valve Structurally normal mitral valve. No mitral stenosisor prolapse. Trivial mitral regurgitation. Aortic Valve Trileaflet aortic valve. Focal thickening of theaortic valve cusps. No aortic valve stenosis or regurgitation. Tricuspid Valve Structurally normal tricuspid valve. No tricuspidstenosis, regurgitation or prolapse. Pulmonic Valve Structurally normal pulmonic valve. No pulmonicstenosis. Mild pulmonic regurgitation. Pericardium Normal pericardium. No pericardial or pleuraleffusion. Aorta Normal size aortic root and proximal ascending aorta.Aortic arch appears within normal limits. CONCLUSIONS Normal global left ventricular size, wall thickness, systolic functionwith no obvious regional wall motion abnormalities. Left ventricular ejection fraction is in the normal range. pseudonormal filling pattern of the left ventricle. Normal right ventricular size and function. Morphologically Normal valves with no hemodynamically significant valveds. us Clemente Bear MD IMG ECHO ORDERABLES Final Result * SCANNED OR REPORT (11/27/2009 12:00 AM EDT) Narrative 11/27/2009 4:09 PM EDT Ordered by an unspecified provider. Transcriptions Unknown, U - 11/27/2009 4:04 PM EDT us U Unknown PROCEDURE/MINOR SURGICAL ORDERAB LES Final Result Visit Diagnoses Diagnosis Start Date Knee laceration Open wound of knee, leg (except thigh), and ankle, without mention of complication 12/11/2012 Open wound of knee, leg (except thigh), and ankle, without mention of complication 12/11/2012 Edema 12/01/2013 Fluid and electrolyte imbalance in Other transitory electrolyte disturbances 12/01/2013 Other fluid overload 12/01/2013 Acute pain of right knee 09/26/2021 Acute pain of right knee 09/26/2021 Acute pain of right knee 10/14/2021 Acute medial meniscus tear of right knee, initial encounter 10/29/2021 Acute pain of both shoulders 01/21/2024 Acute pain of both shoulders 01/21/2024 Impingement syndrome of shoulder region, unspecified laterality 01/21/2024 Impingement syndrome of shoulder region, unspecified laterality 02/18/2024 Impingement syndrome of right shoulder Other affections of shoulder region, not elsewhere classified 02/18/2024 Impingement syndrome of shoulder region, unspecified laterality 02/24/2024 Impingement syndrome of right shoulder Other affections of shoulder region, not elsewhere classified 02/24/2024 Impingement syndrome of shoulder region, unspecified laterality 03/02/2024 Left ankle pain, unspecified chronicity 04/06/2024 Left ankle pain, unspecified chronicity 04/06/2024 Sprain of left ankle, unspecified ligament, initial encounter 04/06/2024 Care Teams Hollow Ware Maker Relationship Specialty Start Date End Date Clemente Bear MD PCP - General Family Medicine 12/11/12
--- OUTSIDE RECORDS SUMMARY | 2025-02-21 07:50 | XMS_ITS | Clinical Summary ---
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 Rigging Foreman Name Role Phone Bernard LOWE, Alin Aguero Conditions or Problems Problem Name Problem Code Onset Date Status Entry Date Provider Comment Standard Description Annotate DEGENERATION, CERVICAL DISC 97304425 (SNOMED CT) 10/03 Active 10/03 Heidielizabeth Mathew MA Degeneration of cervical intervertebral disc LUMBAR RADICULOPATHY 773892016 (SNOMED CT) 10/03 Active 10/03 Heidielizabeth Mathew MA Lumbar radiculopathy Take Note of NUMBNESS 86695452 (SNOMED CT) 09/28 Active 09/29 Hortensia Dreyling MA Numbness Take Note of ANXIETY STATE NOS 508972589 (SNOMED CT) 09/28 Active 09/29 Hortensia Dreyling MA Anxiety state Take Note of GLAUCOMA NOS 86044743 (SNOMED CT) 09/28 Active 09/29 Hortensia Dreyling MA Glaucoma CERVICALGIA 08161289 (SNOMED CT) 09/28 Active 09/28 Hortensia Dreyling MA Neck pain BACK PAIN, LUMBAR 996499573 (SNOMED CT) 09/28 Active 09/28 Hortensia Dreyling MA Low back pain NECK PAIN 85735716 (SNOMED CT) 09/28 Active 09/28 Juan J [facility] ORTHOPEDIC NURSE PRACTITIONER Neck pain BACK PAIN WITH RADICULOPATHY 595981282 (SNOMED CT) 09/28 Active 09/28 [facility] ORTHOPEDIC NURSE PRACTITIONER Backache HERNIATED LUMBAR DISC 920881695 (SNOMED CT) 09/28 Active 09/28 [facility] ORTHOPEDIC NURSE PRACTITIONER Prolapsed lumbar intervertebral disc HERNIATED CERVICAL DISC 349788773 (SNOMED CT) 09/28 Active 09/28 Juan J Goodrich ORTHOPEDIC NURSE PRACTITIONER Displacement of cervical intervertebral disc Medications Medication Instructions Start Date Stop Date Generic Name [facility] Provider ARTHROTEC 75 TABS 1 po bid with food DICLOFENAC-MIS OPROSTOL TABS [id number] Alin Wagner MD LORAZEPAM 0.5 MG TABS [facility] LORAZEPAM [id number] Hortensia Dreyling MA ACETAMINOPHEN PM 500-25 MG TABS [facility] DIPHENHYDRAMIN E-APAP (SLEEP) [id number] Hortensia Dreyling MA XALATAN 0.005 % SOLN [facility] LATANOPROST [id number] Hortensia Dreyling MA ADVAIR DISKUS 100-50 MCG/DOSE INHALATION AEROSOL POWDER BREATH ACTIVATED -[facility] FLUTICASONE-SA LMETEROL [id number] Hortensia Dreyling MA ULTRAM 50 MG ORAL TABLET [facility] TRAMADOL HCL [id number] Hortensia Dreyling MA AMLODIPINE BESY-BENAZEPRIL HCL 5-10 MG CAPS [facility] AMLODIPINE BESY-BENAZEPRI L HCL [id number] Hortensia Dreyling MA NEURONTIN 600 MG TABS [facility] GABAPENTIN [phone] Hortensia Randalyling [place] Medications Administered No information available. Allergies, Adverse Reactions, Alerts Allergy Name Reaction Description Start Date Severity Statu s Provider SULFADIAZINE Critical Heidi Mathew MA AVELOX Critical Hortensia brody MA Results No information available. Plan of Care Type Date Detail Pending order OLIVA Series=1.3 I njections Procedures No information available. Vital Signs Date Name Value Unit Description BP Diastolic 90 mm[Hg] blood pressu re, diastolic BP Systolic 160 mm[Hg] blood pressur e, systolic Body Temperature 98.1 [degF] temperat ure E&M Height 68 [in_us] height E&M Weight Measured 187 [lb_av] weight E& M Weight Measured 187 [lb_av] weight E& M Immunizations No information available. Advance Directives No information available.
--- OUTSIDE RECORDS SUMMARY | 2025-02-21 07:50 | XMS_ITS | Clinical Summary ---
Author Organization [facility] 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 Prednisone Angioedema High 03/19/2021 Cannot take steroids due to having glaucoma. Medications clonazePAM (KLONOPIN) 1 MG tablet Take 1 mg by mouth 2 times daily as needed for Anxiety. Active latanoprost (XALATAN) 0.005 % ophthalmic solution Place 1 drop into both eyes nightly Active lisinopril (PRINIVIL;ZESTR IL) 40 MG tablet Take 40 mg by mouth nightly Active gabapentin (NEURONTIN) 400 MG capsule Take 400 mg by mouth 3 times daily. Active albuterol (PROVENTIL) (2.5 MG/3ML) 0.083% nebulizer solution Take 2.5 mg by nebulization every 6 hours as needed for Wheezing Active albuterol sulfate HFA (VENTOLIN HFA) 108 (90 Base) MCG/ACT inhaler Inhale 2 puffs into the lungs every 6 hours as needed for Wheezing Active famotidine (PEPCID) 20 MG tablet Take 1 tablet by mouth 2 times daily for 10 days 20 tablet Active vitamin D (ERGOCALCIFEROL ) 1.25 MG (47776 UT) CAPS capsule Take 1 capsule by mouth once a week 5 capsule Active Active Problems Problem Noted Date Diagnosed Date Pneumonia due to COVID-19 virus 03/19/2021 Resolved Problems Problem Noted Date Diagnosed Date Resolved Date Acute respiratory failure due to COVID-19 03/18/2021 03/25/2021 Social History Tobacco Use Types Packs/Day Years Used Date Smoking Tobacco: Former Cigarettes Q uit: 1988 Smokeless Tobacco: Never Sex and Gender Information Value Date Recorded Sex Assigned at Not on file Legal Sex Male 5:13 AM EST Gender Identity Not on file Sexual Orientation Not on file Last Filed Vital Signs Vital Sign Reading Time Taken Comments Blood Pressure 143/87 03/31/2021 9:19 AM EST Pulse 90 03/31/2021 9:19 AM EST Temperature 36.3 C (97.3 F) 03/25/2021 3:30 PM EST Respiratory Rate 16 03/25/2021 3:30 PM EST Oxygen Saturation 94% 03/25/2021 3:30 PM EST Inhaled Oxygen Concentration - - Weight 87.1 kg (192 lb) 03/31/2021 9:17 AM EST Height 172.7 cm (5' 8 ) 03/31/2021 9:17 AM EST Body Mass Index 29.19 03/31/2021 9:17 AM EST Plan of Treatment Not on file Insurance [place] BS Advance Directives * Full Code (Latest Code Status on File) Date Activated Date Inactivated Comments 03/19/2021 1:01 PM 03/25/2021 8:19 PM
== END 2025-02-19 23:59 ==
LOC: LAB.DROPOF 02-21 07:48
PROVIDERS: PCP Family Medicine; Visit Provider Family Medicine
DX: K64.9 Unspecified hemorrhoids (principal); Z11.59 Encounter for screening for other viral diseases; I10 Essential (primary) hypertension
CPT/HCPCS: 80053; 80061; 85025; 86803; 87340; 87389